=== PATIENT | male | born 1945 | race Caucasian/White ===

== ENCOUNTER 2022-05-02 05:50 | Observation (INO) ==
[2022-05-02] MEDS ORDERED: CeFAZolin Syr 2,000MG/20 ML 2,000 MG/20 ML SYRINGE IVPB ONE (06:20)
[2022-05-02] MEDS ORDERED: Ringers Solution, Lactated 1,000 ML IVC SCH (06:30)
[2022-05-02] MEDS ORDERED: Vancomycin 1,000 MG VIAL ONE (06:44)
[2022-05-02] MEDS ORDERED: Celecoxib 200 MG CAPSULE PO ONE (07:00)
[2022-05-02] MEDS ORDERED: Famotidine 20 MG/2 ML VIAL IVP ONE (07:00)
[2022-05-02] MEDS ORDERED: Acetaminophen IV 1,000 MG/100 ML BAG IVPB ONE (07:00)
[2022-05-02] MEDS ORDERED: *HR* FentaNYL (PF) 100 MCG/2 ML VIAL ONE ×2 (07:14→08:26)
[2022-05-02] MEDS ORDERED: Lidocaine -MPF 2% 5 ML VIAL ONE (07:15)
[2022-05-02] MEDS ORDERED: *HR* Propofol 200 MG/20 ML VIAL IVP ONE (07:15)
[2022-05-02] MEDS ORDERED: *HR* Midazolam HCl 2 MG/2 ML VIAL ONE (07:28)
[2022-05-02] MEDS ORDERED: Tranexamic Acid 1,000 MG/10 ML VIAL ONE ×2 (07:29→08:47)
[2022-05-02] MEDS ORDERED: Ropivacaine/PF 0.5% 30 ML VIAL ONE (07:31)
[2022-05-02] MEDS ORDERED: ROPIVACAINE/PF/NS 0.25% 1 EACH SYRINGE INTRAART ONE (07:42)
[2022-05-02] MEDS ORDERED: Povidone-Iodine 45 ML, Sodium Chloride IRRigation 1,000 ML IR ONE (08:15)
[2022-05-02] MEDS ORDERED: TOTAL JOINT MIXTURE (100ML) INTRAART ONE (08:15)
[2022-05-02] MEDS ORDERED: EPHEDrine 50 MG/ML VIAL ONE (08:20)
[2022-05-02] MEDS ORDERED: *HR* OxyCODONE Immed Rel 5 MG TABLET PO PRN (08:47)
[2022-05-02] MEDS ORDERED: Ondansetron 4 MG/2 ML VIAL IVP PRN ×2 (08:47→11:29)
[2022-05-02] MEDS ORDERED: Sugammadex Sodium 200 MG/2 ML VIAL IV ONE (09:06)
[2022-05-02] MEDS ORDERED: Naloxone 0.4 MG/ML INJ IVP PRN (11:29)
[2022-05-02] MEDS ORDERED: Sennosides 8.6 MG TABLET PO PRN (11:29)
[2022-05-02] MEDS ORDERED: MOM Conc 10 ML UD.LIQ PO PRN (11:29)
[2022-05-02] MEDS ORDERED: *HR* Promethazine 25 MG/ML VIAL IM PRN (11:29)
[2022-05-02] MEDS: Ketorolac 30 MG/ML VIAL IVP SCH ×3 (13:25→23:30)
[2022-05-02 13:49] LABS: BUN/Creatinine Ratio 11 (6-26); Blood Urea Nitrogen 12 mg/dL (8-23)
[2022-05-02] MEDS ORDERED: GENTAMICIN IVPB ONE ×2 (15:00→16:00)
[2022-05-02] MEDS ORDERED: SODIUM CHLORIDE 0.9% IVPB ONE ×2 (15:00→16:00)
[2022-05-02] MEDS: Ascorbic Acid 500 MG TABLET PO SCH (18:42)
[2022-05-02] MEDS: *HR* Metformin 500 MG TABLET PO SCH (18:42)
[2022-05-02] MEDS: CeFAZolin 2 GM/120 ML BAG IVPB SCH ×2 (20:16→22:49)
[2022-05-02] MEDS: Aspirin Enteric Coated 81 MG Tablet PO SCH (20:16)
[2022-05-02] MEDS: Clobetasol Propionate 0.05% 15 GM Cream Tube TP SCH (20:17)
[2022-05-02] MEDS: Ringers Solution, Lactated 1,000 ML IVC SCH ×2 (20:17→23:30)
[2022-05-03] MEDS: *HR* OxyCODONE Immed Rel 5 MG TABLET PO PRN ×5 (03:04→20:56)
[2022-05-03 04:55] LABS: Basophils % 0.3 %; Hematocrit 30.7 % (37.5-50.1); Hemoglobin 10.8 g/dL (12.9-16.9); Immature Granulocytes % 0.4 % (0-4); Lymphocytes # 0.5 K/mcL (0.6-4.6); Lymphocytes % 4.8 %; Mean Corpuscular HGB Conc 35.2 g/dL (31.6-35.5); Mean Corpuscular Hemoglobin 33.2 pg (28.0-33.3); Mean Corpuscular Volume 94.5 fL (83.0-100.0); Mean Platelet Volume 9.2 fL (9.4-12.4); Monocytes % 8.8 %; Neutrophils # 9.7 K/mcL (1.6-8.9); Platelet Count 190 K/mcL (140-400); Red Blood Count 3.25 M/mcL (4.19-5.50); Red Cell Distribution Width 11.4 % (11.5-14.5); Segmented Neutrophils % 85.7 %; White Blood Count 11.3 K/mcL (4.3-11.1)
[2022-05-03 05:11] LABS: Calcium 8.7 mg/dL (8.6-10.3); Potassium 4.3 mEq/L (3.5-5.1)
[2022-05-03] MEDS: Ketorolac 30 MG/ML VIAL IVP SCH ×3 (05:35→18:32)
[2022-05-03] MEDS: CeFAZolin 2 GM/120 ML BAG IVPB SCH ×4 (05:35→20:57)
[2022-05-03] MEDS: Aspirin Enteric Coated 81 MG Tablet PO SCH ×2 (08:07→20:56)
[2022-05-03] MEDS: Ascorbic Acid 500 MG TABLET PO SCH ×2 (08:07→16:06)
[2022-05-03] MEDS: *HR* Metformin 500 MG TABLET PO SCH ×2 (08:07→16:09)
[2022-05-03] MEDS: hydroCHLOROthiazide 25 MG TABLET PO SCH (08:08)
[2022-05-03] MEDS: Multivit/Ca/Min/Fe/FA 1 TAB TABLET PO SCH (08:08)
[2022-05-03] MEDS: Clobetasol Propionate 0.05% 15 GM Cream Tube TP SCH ×2 (08:13→20:57)
[2022-05-03] MEDS: Ringers Solution, Lactated 1,000 ML IVC SCH (15:09)
[2022-05-04] MEDS: Ketorolac 30 MG/ML VIAL IVP SCH ×6 (00:09→23:20)
[2022-05-04] MEDS: Ringers Solution, Lactated 1,000 ML IVC SCH (00:09)
[2022-05-04] MEDS ORDERED: Gentamicin 100 MG in 0.9 % Sodium Chloride 100 ML IVPB SCH (03:00)
[2022-05-04 05:11] LABS: Basophils # 0.1 K/mcL (0.0-0.2); Basophils % 0.9 %; Eosinophils # 0.1 K/mcL (0.0-0.6); Eosinophils % 1.6 %; Hematocrit 31.1 % (37.5-50.1); Hemoglobin 10.9 g/dL (12.9-16.9); Immature Granulocytes % 0.5 % (0-4); Lymphocytes % 10.9 %; Mean Corpuscular Hemoglobin 33.3 pg (28.0-33.3); Mean Corpuscular Volume 95.1 fL (83.0-100.0); Mean Platelet Volume 9.3 fL (9.4-12.4); Monocytes # 1.1 K/mcL (0.0-1.3); Neutrophils # 6.4 K/mcL (1.6-8.9); Platelet Count 195 K/mcL (140-400); Red Blood Count 3.27 M/mcL (4.19-5.50); Red Cell Distribution Width 11.9 % (11.5-14.5); Segmented Neutrophils % 73.1 %; White Blood Count 8.7 K/mcL (4.3-11.1)
[2022-05-04] MEDS: CeFAZolin 2 GM/120 ML BAG IVPB SCH ×3 (05:22→20:01)
[2022-05-04] MEDS: *HR* OxyCODONE Immed Rel 5 MG TABLET PO PRN ×4 (05:23→20:43)
[2022-05-04 05:33] LABS: Calcium 8.6 mg/dL (8.6-10.3); Potassium 4.5 mEq/L (3.5-5.1)
[2022-05-04] MEDS: Ascorbic Acid 500 MG TABLET PO SCH ×2 (08:01→16:22)
[2022-05-04] MEDS: hydroCHLOROthiazide 25 MG TABLET PO SCH (08:02)
[2022-05-04] MEDS: Aspirin Enteric Coated 81 MG Tablet PO SCH ×2 (08:02→20:01)
[2022-05-04] MEDS: *HR* Metformin 500 MG TABLET PO SCH ×2 (08:03→16:40)
[2022-05-04] MEDS: Multivit/Ca/Min/Fe/FA 1 TAB TABLET PO SCH (08:03)
[2022-05-04] MEDS: Clobetasol Propionate 0.05% 15 GM Cream Tube TP SCH ×2 (13:16→20:19)
[2022-05-05] MEDS: *HR* OxyCODONE Immed Rel 5 MG TABLET PO PRN ×2 (03:16→08:29)
[2022-05-05 03:23] VITALS: TEMP 98
[2022-05-05] MEDS: CeFAZolin 2 GM/120 ML BAG IVPB SCH (05:24)
[2022-05-05] MEDS: Ketorolac 30 MG/ML VIAL IVP SCH (05:36)
[2022-05-05] MEDS: Ascorbic Acid 500 MG TABLET PO SCH (08:24)
[2022-05-05] MEDS: Multivit/Ca/Min/Fe/FA 1 TAB TABLET PO SCH (08:25)
[2022-05-05] MEDS: *HR* Metformin 500 MG TABLET PO SCH (08:25)
[2022-05-05] MEDS: hydroCHLOROthiazide 25 MG TABLET PO SCH (08:25)
[2022-05-05] MEDS: Aspirin Enteric Coated 81 MG Tablet PO SCH (08:25)
[2022-05-05] MEDS: Clobetasol Propionate 0.05% 15 GM Cream Tube TP SCH (08:26)
[2022-05-05 08:41] VITALS: BP 135/63; PULSE 69; O2SAT 96
== END 2022-05-05 11:44 ==
LOC: SDCAOSI 05:50 → 4WAOSI 05:50
PROVIDERS: ADMIT Orthopaedic Surgery; ATTEND Orthopaedic Surgery